=== PATIENT | female | born 1990 | race American Indian/Alaskan Native ===

== ENCOUNTER 2019-05-23 01:58 | Emergency (ER) | payer SELFPAY ==
[2019-05-23] MEDS ORDERED: ONDANSETRON 4 MG/2 ML INJ IV ONE (04:32)
[2019-05-23] MEDS ORDERED: KETOROLAC 30 MG/1 ML INJ IV ONE (04:32)
[2019-05-23] MEDS ORDERED: FAMOTIDINE 20 MG/2 ML INJ IV ONE (04:32)
[2019-05-23 05:19] LABS: Basophils # (Auto) 0.1 K/mm3 (0.0-0.1); Basophils % (Auto) 0.6 % (0.0-1.8); Eosinophils % (Auto) 0.2 % (0.0-4.3); Hematocrit 40.4 % (30.3-42.9); Hemoglobin 13.1 gm/dl (10.1-14.3); Lymphocytes # (Auto) 1.9 K/mm3 (1.2-5.4); Lymphocytes % (Auto) 17.6 % (13.4-35.0); Mean Corpuscular HGB Conc 32 % (30-34); Mean Corpuscular Volume 84 fl (79-97); Monocytes # (Auto) 0.6 K/mm3 (0.0-0.8); Monocytes % (Auto) 5.4 % (0.0-7.3); Platelet Count 343 K/mm3 (140-440); Red Blood Count 4.82 M/mm3 (3.65-5.03); Red Cell Distribution Width 14.3 % (13.2-15.2)
[2019-05-23 05:31] LABS: Alanine Aminotransferase 18 units/L (7-56); Albumin 4.4 g/dL (3.9-5); BUN/Creatinine Ratio 10; Blood Urea Nitrogen 10 mg/dL (7-17); Calcium 9.2 mg/dL (8.4-10.2); Hemolysis Index 13
[2019-05-23 06:25] VITALS: BP 117/63
[2019-05-23 06:43] LABS: Bilirubin,Urine NEG (Negative); Blood,Urine NEG (Negative); Color,Urine Yellow (Yellow); Mucus,Urine 1+ /HPF; Urobilinogen,Urine < 2.0 mg/dL (<2.0)
--- NOTE | 2019-05-23 06:43 | Emergency Department Report ---
<JOSECRISTIAN LITTLEJOHN - Last Filed: 05/23/19 06:58> ED Abdominal Pain HPI - General Chief Complaint: Sore Throat Stated Complaint: RECTAL PAIN Source: patient Mode of arrival: Ambulatory Limitations: No Limitations - History of Present Illness Initial Comments: Patient is a A0 29 yo AA female with no past medical history who presents to the ED with complaint of acute onset pussy stem diameter, abdominal pain with nausea and vomiting for the last 6 hours. Patient states that the patient has been intermittent but severe on that she has had 3 episodes of nausea and vomiting. Patient denies dizziness, fever, chills, diarrhea, dysuria, urinary frequency and urgency, cough, sore throat, chest pain, shortness of breath, low back pain, vaginal bleeding or vaginal discharge. MD Complaint: abdominal pain, other -: Sudden, hour(s) (6) Location: periumbilical Radiation: none Migration to: no migration Severity: severe Severity scale (0 -10): 7 Quality: cramping, aching, sharp Consistency: intermittent Improves With: nothing Worsens With: nothing Associated Symptoms: denies other symptoms, nausea, vomiting. denies: diarrhea, fever, chills, constipation, dysuria, hematemesis, hematochezia, melena, hematuria, anorexia - Related Data LMP Date: 05/20/19 Previous Rx's Medication Instructions Recorded Last Taken Type Dicyclomine [Bentyl] 20 mg PO Q6H PRN #24 tablet 05/23/19 Unknown Rx Famotidine [Pepcid] 20 mg PO Q12H #60 tablet 05/23/19 Unknown Rx Ketorolac [Toradol] 10 mg PO Q8H PRN #20 tablet 05/23/19 Unknown Rx Ondansetron [Zofran Odt] 4 mg PO Q6HR PRN #20 tab.rapdis 05/23/19 Unknown Rx Allergies Allergy/AdvReac Type Severity Reaction Status Date / Time No Known Allergies Allergy Verified 05/23/19 02:03 ED Review of Systems Constitutional: denies: chills, fever Eyes: denies: eye pain, eye discharge, vision change ENT: denies: ear pain, throat pain Respiratory: denies: cough, shortness of breath, wheezing Cardiovascular: denies: chest pain, palpitations Endocrine: no symptoms reported Gastrointestinal: abdominal pain, nausea, vomiting. denies: diarrhea Genitourinary: denies: urgency, dysuria, discharge Musculoskeletal: denies: back pain, joint swelling, arthralgia Skin: denies: rash, lesions Neurological: denies: headache, weakness, paresthesias Psychiatric: denies: anxiety, depression Hematological/Lymphatic: denies: easy bleeding, easy bruising ED Past Medical Hx - Past Medical History Previous Medical History?: Yes Hx Asthma: Yes - Surgical History Past Surgical History?: No - Social History Smoking Status: Current Every Day Smoker Substance Use Type: None - Medications Home Medications: Home Medications Medication Instructions Recorded Confirmed Last Taken Type Dicyclomine [Bentyl] 20 mg PO Q6H PRN #24 tablet 05/23/19 Unknown Rx Famotidine [Pepcid] 20 mg PO Q12H #60 tablet 05/23/19 Unknown Rx Ketorolac [Toradol] 10 mg PO Q8H PRN #20 tablet 05/23/19 Unknown Rx Ondansetron [Zofran Odt] 4 mg PO Q6HR PRN #20 tab.rapdis 05/23/19 Unknown Rx ED Physical Exam - General Limitations: No Limitations General appearance: alert, in no apparent distress - Head Head exam: Present: atraumatic, normocephalic, normal inspection - Eye Eye exam: Present: normal appearance, PERRL, EOMI Pupils: Present: normal accommodation - ENT ENT exam: Present: normal exam, normal orophraynx, mucous membranes moist, TM's normal bilaterally, normal external ear exam - Neck Neck exam: Present: normal inspection, full ROM - Respiratory Respiratory exam: Present: normal lung sounds bilaterally. Absent: respiratory distress, wheezes, rales, rhonchi, chest wall tenderness, accessory muscle use, decreased breath sounds, prolonged expiratory - Cardiovascular Cardiovascular Exam: Present: normal rhythm, tachycardia, normal heart sounds. Absent: systolic murmur, diastolic murmur, rubs, gallop - GI/Abdominal GI/Abdominal exam: Present: soft, tenderness (palpable periumbilical tenderness with no guarding or rebound), normal bowel sounds. Absent: guarding, rebound, hyperactive bowel sounds, hypoactive bowel sounds - Extremities Exam Extremities exam: Present: normal inspection, full ROM, normal capillary refill - Back Exam Back exam: Present: normal inspection, full ROM. Absent: tenderness, muscle spasm, paraspinal tenderness - Neurological Exam Neurological exam: Present: alert, oriented X3, CN II-XII intact, normal gait, reflexes normal - Psychiatric Psychiatric exam: Present: normal affect, normal mood, anxious - Skin Skin exam: Present: warm, dry, intact, normal color. Absent: rash ED Medical Decision Making - Lab Data Result diagrams: 05/23/19 04:44 05/23/19 04:44 - Medical Decision Making This is a 29-year-old female who presented to the ED with acute onset persistent. Umbilical abdominal pain with nausea and vomiting for 6 hours. In the ED, patient is alert and oriented 3 additional treatment distress but appe ars to be in significant pain grinding the physical exam. Patient was treated for pain and also nausea and vomiting in the ED. Lab test results were reviewed and all nonactionable. Abdomen pelvis CT scan with contrast shows no acute abnormalities in the abdomen and pelvis. On reevaluation, patient's pain is well-controlled with medications. Patient was discharged home on medications and advised follow-up with a primary care physician in 5-7 days for reevaluation. Patient was advised to return to the ED immediately if symptoms get worse. - Differential Diagnosis acute appendicitis; Ovarian cyst; Gastroenteritis; UTI; ED Disposition Clinical Impression: Nausea and vomiting in adult Disposition: DC-01 TO HOME OR SELFCARE Is pt being admited?: No Does the pt Need Aspirin: No Condition: Stable Instructions: Gastroenteritis (ED), Acute Nausea and Vomiting (ED), Acute Abdominal Pain (ED) Additional Instructions: Maintain a clear liquid diet for 12-24 hours, take medications as needed for pain and nausea and vomiting. Follow-up with your primary care physician in 5-7 days for reevaluation or return to the ED immediately if symptoms get worse. Prescriptions: Dicyclomine [Bentyl] 20 mg PO Q6H PRN #24 tablet PRN Reason: abdominal pain Famotidine [Pepcid] 20 mg PO Q12H #60 tablet Ketorolac [Toradol] 10 mg PO Q8H PRN #20 tablet PRN Reason: Pain Ondansetron [Zofran Odt] 4 mg PO Q6HR PRN #20 tab.rapdis PRN Reason: Nausea Referrals: [facility] [Outside] - 7-10 days Forms: Work/School Release Form(ED) Time of Disposition: 07:00 Print Language: JAPANESE <GUIDEN,ELLIS P - Last Filed: 05/31/19 22:30> ED Review of Systems ROS: Stated complaint: RECTAL PAIN Other details as noted in HPI ED Course Vital Signs 05/23/19 05/23/19 05/23/19 02:06 04:53 06:24 Temperature 98.2 F 98.8 F Pulse Rate 118 H 68 Respiratory 16 16 14 Rate Blood Pressure 131/90 Blood Pressure 117/63 [Right] O2 Sat by Pulse 99 99 Oximetry ED Medical Decision Making - Lab Data Result diagrams: 05/23/19 04:44 05/23/19 04:44 - Medical Decision Making Attestation: Available for consultation Critical care attestation.: If time is entered above; I have spent that time in minutes in the direct care of this critically ill patient, excluding procedure time. ED Disposition Is pt being admited?: No
--- NOTE | 2019-05-23 06:50 | Cat Scan Report ---
CT of the abdomen and pelvis with contrast INDICATION: Abdominal pain with nausea and vomiting COMPARISON: None FINDINGS: Lung bases are clear. The liver, spleen, pancreas, adrenal glands and kidneys show no abnor malities. No definite gallbladder or biliary tree abnormality. No fluid or adenopathy in the upper ab domen. CT of the pelvis shows a normal appendix. No uterine or adnexal masses with a follicular cysts seen i n the ovaries. There is no free pelvic fluid or adenopathy. No diverticulosis or diverticulitis. No h ernia or bowel obstruction. No significant skeletal lesion. IMPRESSION: Negative study. Automated exposure control was utilized to diminish radiation dose. Signer Name: Gabo Sterling MD Signed: 05/23/2019 6:46 AM Workstation Name: [id number]
== END 2019-05-23 07:15 | disposition home or self-care (01) ==
LOC: ED 01:58
DX: A08.4 Viral intestinal infection, unspecified (principal); J45.909 Unspecified asthma, uncomplicated; F17.200 Nicotine dependence, unspecified, uncomplicated
CPT/HCPCS: 36415; 74177; 80053; 81001; 84703; 85025; 96374; 96375; 99284; J1885; J2405; Q9967